=== PATIENT | female | born 1970 | race Caucasian/White ===

== ENCOUNTER 2019-02-23 08:25 | Day surgery (SDC) | payer OTHER, SELFPAY ==
[2019-02-20 12:12] VITALS: BMI 26.7
[2019-02-23] VITALS (14 sets, daily range): BP systolic 111–139; BP diastolic 68–88; PULSE 64–90; RESP 10–18; TEMP 36.1–36.8; O2SAT 93–100; BMI 26.1
--- NOTE | 2019-02-23 | PATH_ITS ---
[facility] Accession Number: [id number] . 01 Material submitted: . endometrium - ENDOMETRIAL CURETTINGS . 02 Diagnosis: Endometrial Curettings: Portions of early secretory endometrium; negative for glandular hyperplasia, cytologic atypia, and malignancy. [facility]/02/24/2019 . 02 Electronically signed: . Sherri Avina MD, Pathologist NPI- [id number] . 01 Gross description: . ENDOMETRIAL CURETTINGS: Received in formalin are minute fragments of mucoid and hemorrhagic material measuring 0.5 x 0.5 x 0.3 cm in aggregate. Submitted in toto in 1 cassette. /[facility] /DM . 02 Pathologist provided ICD-10: N85.00 . 02 CPT . 752687 Performed at: 01 [facility] [address] [facility], [place], [place] [id number] MD Jovanni Meraz MD Phone: [phone] Performed at: 02 [facility] [address] [place], [place] [id number] MD Brenda Bone MD Phone: [phone]
[2019-02-23] MEDS: LACTATED RINGERS 1,000 ML 42 ML IV ×2 (09:08→10:43)
[2019-02-23] MEDS: CEFAZOLIN 2 GM/100 ML FROZ.PIGGY IV (10:02)
--- NOTE | 2019-02-23 10:04 | PM.PREOP ---
Pre-operative Note Interval Note History & Physical reviewed/Exam performed by Physician: Yes Changes to H&P: No
--- NOTE | 2019-02-23 10:18 | SUR.OPER ---
Lithotomy on padded OR bed, head on pillow, arms secured on padded arm boards at <90 degrees abduction. Legs secured in padded yellow fins stirrups.
[2019-02-23] MEDS: BUPIVACAINE 0.25% W/ EPI 30 ML VIAL INJ (10:32)
[2019-02-23] MEDS: fentaNYL 100 MCG/2 ML INJ 50 MCG IV (11:19)
[2019-02-23] MEDS: HYDROCODONE/ACET 5/325 TABLET 1 TAB PO (11:38)
[2019-02-23] MEDS: LACTATED RINGERS 1,000 ML 100 ML IV ×2 (12:07→22:28)
--- NOTE | 2019-02-23 12:11 | PC.NURSE ---
1200 Pt arrived from PACU via bed. Pt A,A&O x3. denies pain, on r/a sats 99%, damaso pad in place, will order a diet, Pt states hungry. 1215 SCDs applied BLE. IVF infusing.
[2019-02-23] MEDS: KETOROLAC 30 MG/ML VIAL IV ×2 (15:44→23:45)
[2019-02-23] MEDS: OXYCODONE/ACETAMINOPHEN 5/325 TABLET 1 TAB PO (20:19)
[2019-02-23] MEDS: DOCUSATE 250 MG CAPSULE PO (20:22)
[2019-02-24 06:25] VITALS: BP 117/77; PULSE 83; RESP 16; TEMP 36.5; O2SAT 98
--- NOTE | 2019-02-24 07:08 | PC.NURSE ---
Patients vaginal packing and beck removed. Patient tolerated procedure well. No complaints of pain at this time.
[2019-02-24 07:40] VITALS: BP 143/68; PULSE 95; RESP 18; TEMP 36.4; O2SAT 100
[2019-02-24] MEDS: KETOROLAC 30 MG/ML VIAL IV (09:19)
--- NOTE | 2019-02-24 10:19 | PC.NURSE ---
discharge: patient voided 115cc's w/ 125 cc pvr. md at bedside. okay to dc home as ordered. script provided to patient, reviewed all dc home instructions, including present to ER if unable to void. reviewed all other symptoms warranting call to md. patient will keep her f/u appt on mar 17 per discussion. confirms understanding of all instructions. left by martín w/ all belongings and paperwork in no s/sx's of distress by martín w/ rn escort at 0945.
--- NOTE | 2019-02-24 11:19 | PM.GYNOP.1 ---
Operative Date/Time/Diagnoses Date of procedure: 02/23/19 Time of procedure: 12:00 Pre-op diagnosis: Symptomatic cystocele Menorrhagia Post-op diagnosis: same Procedure & Clinicians Procedure: Procedures Operation Date: 02/23/19 09:45 Actual Procedures Side Surgeon p Hysteroscopy w/ Endometrial Ablation *OPB* Natividad Hsieh MD s Anterior Colporrhaphy Natividad Hsieh MD Indications: Menorrhagia Symptomatic cystocele Surgeon: Natividad Hsieh Software Applications Engineer: Andrea Giron Anesthesia Type: General Operative Notes Findings: Third-degree cystocele 8 week size anteverted uterus Both fallopian tube ostia observed Closure Type: primary Specimen(s): endometrial curettings Applied: catheter Estimated blood loss (mL): 75 Procedure in detail: The patient was taken to the operating room where she was placed in the dorsal supine position. After adequate general endotracheal anesthesia was achieved, she was placed in the dorsal lithotomy position, and prepped and draped in the usual sterile fashion. A time-out was performed. A bivalve speculum was placed into the vagina and the anterior lip of the cervix grasped with a single-tooth tenaculum. The cervical os was sequentially dilated until the hysteroscope could pass easily into the endometrial cavity. Initial inspection with the hysteroscope revealed both fallopian tube ostia. No polyps or fibroids. The hysteroscope was removed. Gentle sharp curettage was performed yielding a large amount of endometrial curettings. The hysteroscope was removed from the uterus. The uterus was measured from the internal os to the fundus and measured 5.5 cm. This was set on the NovaSure catheter and the generator. The NovaSure catheter passed easily into the endometrial cavity and was opened. The width of the uterus was 4.5 cm. This was set on the NovaSure generator. This indicated a power of 136 w. The cervix was capped, the cavity assessment was performed and passed. Cycle was initiated and lasted 91 sec. The cervix was then capped, the catheter was closed and removed from the uterus. The single-tooth tenaculum was removed from the anterior lip of the cervix. The bivalve speculum was removed from the vagina. A weighted speculum was placed into the vagina. Allis clamps were placed at the apex of the cystocele. 10 cc of 0.25% Marcaine with epinephrine were injected submucosally. An incision was made between the Allis clamps with a 10. Blade. Wide Allis clamps were placed in the midline of the cystocele, approximately 6. The mucosa was injected on either side of the Allis clamps with 0.25% Marcaine with epinephrine. The mucosa was undermined and incised with the Metzenbaum scissors moving the wide Allis clamps to the edges of the mucosa. This was continued to within 1 and 0.5 cm of the urethral meatus. The underlying fascia was dissected off of the mucosa using a 10. Blade and opened moistened Ray-Ariana. The fascia was reapproximated with 0 Vicryl with simple interrupted sutures. The excess vaginal mucosa was excised. The mucosa was closed with 2 0 Vicryl with simple interrupted sutures including the underlying fascia to close the space. Hemostasis was achieved. 150 cc of clear yellow urine. A Betadine moistened vaginal pack was placed into the vagina. The Mills remained in place. Sponge, lap, and instrument counts were correct x2. The patient tolerated the procedure well, was taken to PACU in stable condition. Complications: none Post-operative Condition: stable Disposition: PACU Plan for aftercare: To Acute Care after recovery
--- NOTE | 2019-02-24 11:25 | PM.DS.1 ---
History of Present Illness History of Present Illness Date Patient Seen: 02/24/19 Time Patient Seen: 08:30 Chief complaint: [id number] PELVIC *OPB* Narrative: Patient is a 48-year-old postop day # 1 status post anterior repair, D&C hysteroscopy with NovaSure endometrial ablation Patient voided 150 cc of clear yellow urine. Her postvoid residual by scan was 81 cc. Her pain is well controlled. She is ambulating without assistance. She is tolerating a diet. Discharge Providers Provider Date of admission: 02/23/2019 Discharge Date: 02/24/19 Primary care physician: Barbara Esquivel Discharge provider: Natividad Hsieh MD Summary Hospital Course Discharge Diagnosis: Third-degree cystocele Menorrhagia Anterior repair D&C hysteroscopy with NovaSure endometrial ablation Hospital Course: The patient was admitted on 02/23/2019 for a scheduled anterior repair, D&C hysteroscopy, and NovaSure endometrial ablation She underwent these procedures without complication. She voided without significant postvoid residuals on postop day # 1. Her pain was well controlled. She was tolerating a diet without nausea or vomiting. She is ambulating independently. Status at Discharge Cognitive/behavioral status at discharge: oriented Functional status at discharge: independent ambulation Overall status at discharge: patient is progressing back to baseline Time Spent with Patient Time spent: Less than 30 minutes Exam Vital Signs (past 8 hours): - 02/24/19 06:25 02/24/19 07:40 Temperature 97.7 F 97.5 F L Pulse Rate 83 95 H Respiratory Rate 16 18 Blood Pressure 117/77 143/68 H Pulse Oximetry 98 100 Oxygen Delivery Method Room Air Oxygen Flow Rate 0 Narrative Exam Narrative: Generally: Patient is sitting up in bed, eating breakfast, no acute distress Lungs: Clear to auscultation bilaterally Cardiovascular: Regular rate and rhythm Abdomen: Soft and flat. Good bowel sounds. Well-healed remote abdominoplasty scar. Perineum: Dry Extremities: No edema, negative Homans Discharge Plan Discharge Plan Patient Disposition: Home Discharge Med Rec/Prescriptions Prescriptions: New oxycodone-acetaminophen [Percocet] 5-325 mg tablet 1 tab PO Q4-6H PRN (Reason: pain) Qty: 20 RF: 0 Continued acyclovir 400 mg tablet 400 mg PO DAILY RF: 0 dextroamphetamine-amphetamine [Adderall XR] 30 mg capsule,extended release 24hr 30 mg PO QAM RF: 0 levothyroxine 25 mcg capsule 25 mcg PO DAILY RF: 0 Follow up/Referrals: Natividad Hsieh MD [Physician] - (Follow up w/ Dr. Hsieh Mar 17; 3:00 appt w/ 2:45 check in.) Barbara Esquivel [Primary Care Provider] - Discharge Orders: Discharge (Order); Ordered 02/24/19 Ordered By: Natividad Hsieh Provider Discharge Instructions Diet: Regular Activity: No heavy lifting No intercourse Skin/Wound/Dressing Care Report to your healthcare provider any signs of infection, such as:: chills, fever, increased pain and unusual drainage Visit Report/Discharge Packet Instructions: DI for Cystocele and Rectocele Repair, DI for Hysteroscopy, DI for Endometrial Ablation Stand Alone Forms: Surgery Discharge Discharge Data Primary Care Provider: Barbara Esquivel Attending Provider: Natividad Hsieh Discharges patient from system. Discharge Date/Time: 02/24/19 09:45 Quality VTE Deep Vein Thrombosis/Pulmonary Embolism Present on Admission: No
== END 2019-02-24 09:45 | disposition home or self-care (01) ==
LOC: OR 08:27 → AC 08:28
PROVIDERS: PCP Nurse Practitioner Family; Visit Provider Obstetrics & Gynecology
PROC: 0U5B8ZZ Destruction of Endometrium, Via Natural or Artificial Opening Endoscopic (ICD-10-PCS; CPT 58563; principal; 2019-02-23 09:45)
PROC: (CPT 57240; 2019-02-23 09:45)
DX: N85.00 Endometrial hyperplasia, unspecified (principal); N81.3 Complete uterovaginal prolapse
CPT/HCPCS: 57240; 58563; J0690; J1100; J1885; J2405; J2704; J3010